=== PATIENT | male | born 1995 | race African-American/Black ===

== ENCOUNTER 2018-09-30 23:06 | Emergency (ER) | payer MEDICAID ==
[~2018-09-30] VITALS: Ht 170.2 cm; Wt 74.8 kg
[~2018-09-30 23:06] MED LIST: IBUPROFEN600 MG PO; VICODIN 5-5001 EACH PO
[2018-09-30] MEDS ORDERED: PROAIR HFA8.5 GM INH (23:19)
--- NOTE | 2018-09-30 23:40 | NUR ---
ED Nurse Note: Pt arrived ED from home, c/o SOB today. Pt is A/O x4. Vital signs stable at this time, waiting for orders.
[2018-09-30] MEDS ORDERED: Albuterol/Ipratropium 3ml neb HHN ONE (23:45)
[2018-09-30 23:47] VITALS: BP 126/74
--- NOTE | 2018-09-30 23:48 | Emergency Room Report ---
History of Present Illness General Chief Complaint: Asthma Source: Patient Present Illness HPI Patient is a 23-year-old male presents presented after increased cough and difficulty breathing. Patient gradual onset of symptoms. Patient was noted have prior history of asthma. Patient does not normally take steroids. He ran out of his inhaler. Allergies: Coded Allergies: No Known Allergies (Unverified , 10/19/12) Patient History Reviewed Nursing Documentation: PMH: Agreed; PSxH: Agreed Nursing Documentation-PMH Hx Asthma: Yes Review of Systems All Other Systems: negative except mentioned in HPI Physical Exam Vital Signs Date Time Temp Pulse Resp B/P (MAP) Pulse Ox O2 Delivery O2 Flow Rate FiO2 09/30/18 23:15 98.1 89 16 129/78 91 Room Air General Appearance: well appearing, no apparent distress Head: normocephalic, atraumatic ENT: hearing grossly normal, normal voice Neck: full range of motion, supple Respiratory: speaking full sentences, wheezing Cardiovascular #1: normal inspection Gastrointestinal: normal inspection Musculoskeletal: normal inspection Neurologic: normal inspection, alert, oriented x3, responsive, normal gait Psychiatric: mood/affect normal Skin: no rash Medical Decision Making Diagnostic Impression: Primary Impression: Asthma attack ER Course Patient presented for shortness of breath.Differential included but was not limited to anemia, pneumonia, pneumothorax, myocardial infarction, pericardial effusion, congestive heart failure, acidosis. Patient has a benign exam and does not appear to require any further imaging or laboratory testing at this time. He was given breathing treatment as well as oral steroids. He was given a prescription for refills of his asthma medications. The patient is advised to follow up with primary care doctor in 1-2 days. Patient is advised to return if any worsening condition or if any changes in status that are concerning. This report is dictated with [employer] skull chopper software which may occasionally lead to discrepancies related to use of this software. Last Vital Signs Date Time Temp Pulse Resp B/P (MAP) Pulse Ox O2 Delivery O2 Flow Rate FiO2 09/30/18 23:15 98.1 89 16 129/78 91 Room Air Status: improved Disposition: HOME, SELF-CARE Condition: Stable Scripts Albuterol Sulfate* (ALBUTEROL SULFATE MDI*) 8.5 Gm Hfa.aer.ad 2 PUFF INH Q6H, #1 EA 0 Refills Prov: Regino Sabillon MD 10/01/18 Prednisone* (PREDNISONE*) 20 Mg Tablet 60 MG ORAL DAILY, #10 TAB Prov: Regino Sabillon MD 10/01/18 Regino Sabillon MD Sep 30, 2018 23:47
[2018-10-01] MEDS ORDERED: PREDNISONE20 MG ORAL (00:30)
[2018-10-01] MEDS ORDERED: ALBUTEROL SULF8.5 GM INH (00:30)
[2018-10-01 00:39] VITALS: BP 128/73
--- NOTE | 2018-10-01 00:39 | NUR ---
ER DISCHARGE NOTE: Patient is cleared to be discharged per Dr. Sabillon. Breathing treatment given by RT. t feels better at this time. pt is aox4, on room air ,O2 Sat 99% on room air. vital signs stable . pt was given dc and prescription instructions, pt was able to verbalize understanding, pt id band removed. pt is able to ambulate with steady gait. pt took all belongings.
== END 2018-10-01 00:39 | disposition home or self-care (01) ==
LOC: EMR 23:32
DX: J45.909 Unspecified asthma, uncomplicated (principal)
CPT/HCPCS: 94640; 99284; J7620